=== PATIENT | female | born 1945 | race African-American/Black ===

== ENCOUNTER 2021-12-22 20:10 | Emergency (ER) | payer OTHER ==
[~2021-12-22] VITALS: Ht 167.6 cm; Wt 104.3 kg
[2021-12-22 20:22] VITALS: BP 162/82
--- NOTE | 2021-12-22 20:35 | NUR ---
Patient and family told [employer] director , they will go to [place] and did not want to wait.
--- NOTE | 2021-12-22 20:36 | NUR ---
PATIENT LEFT WITHOUT BEING SEEN BY DR. Downs. NO FURTHER CARE PROVIDED FOR PATIENT.
== END 2021-12-22 20:58 | disposition left against medical advice (07) ==
LOC: MED 20:10
DX: M54.2 Cervicalgia (principal); Z53.21 Procedure and treatment not carried out due to patient leaving prior to being seen by health care provider